=== PATIENT | female | born 1990 | race Two or more races ===

== ENCOUNTER 2023-12-20 02:37 | Emergency (ER) | payer MEDICAID, OTHER ==
[~2023-12-20] VITALS: Ht 170.2 cm; Wt 131.1 kg
[2023-12-20 02:37] VITALS: BP 102/71; PULSE 90; RESP 16; TEMP 98.1; O2SAT 8
[2023-12-20] MEDS: KETOROLAC TROMETH 60MG/2ML VIAL IM ONE (04:35)
[2023-12-20] MEDS ORDERED: IBUP-1456 PO (04:40)
[2023-12-20] MEDS ORDERED: METH-1181 PO (04:40)
== END 2023-12-20 04:49 | disposition home or self-care (01) ==
LOC: EDBD 02:37 → ER 02:37
DX: S39.012A Strain of muscle, fascia and tendon of lower back, initial encounter (principal); S13.4XXA Sprain of ligaments of cervical spine, initial encounter; M54.89 Other dorsalgia; V43.62XA Car passenger injured in collision with other type car in traffic accident, initial encounter; Y93.89 Activity, other specified; Y92.89 Other specified places as the place of occurrence of the external cause; Y99.8 Other external cause status
CPT/HCPCS: 96372; 99283; J1885